=== PATIENT | male | born 1970 | race Caucasian/White ===

== ENCOUNTER 2019-11-02 07:50 | Outpatient (CLI) | payer BC, SELFPAY ==
--- NOTE | ~2019-11-02 | MR_ITS ---
EXAMINATION: MR brain/brain stem wo/w con DATE: 11/02/2019 09:13 INDICATION: Syncope and collapse TECHNIQUE: Magnetic resonance imaging (MRI) of the brain and brainstem was performed without and with 16 mL Multihance intravenous contrast. Sequences included sagittal and axial T1-weighted SE, axial d iffusion-weighted FS SE, axial T2*-weighted GRE, axial T2-weighted FLAIR, and axial T2-weighted FSE. Postcontrast axial and coronal T1-weighted SE was obtained. Apparent diffusion coefficient (ADC) maps were created. COMPARISON: None. FINDINGS: There are no areas of restricted diffusion to suggest acute infarction. No intracranial hemorrhage or abnormal intracranial mass lesion. There are no intraparenchymal signal abnormalities seen on the ot her pulse sequences. The ventricles are symmetric and normal in size. There are no abnormal extra-axi al fluid collections. Flow voids are seen in the cerebral arteries on the T2-weighted sequences consi stent with their expected patency. Mild mucoperiosteal thickening the bilateral ethmoid and maxillary sinuses. Visualized orbits and soft tissues are unremarkable. There are no areas of abnormal enhance ment on the post contrast images. IMPRESSION: 1. Normal brain. Reviewed, dictated and finalized at location A. IMPRESSION: 1. Normal brain.
[2019-11-02 08:51] LABS: Estimated Glomerular Filt Rate > 60
== END 2019-11-02 07:51 | disposition home or self-care (01) ==
PROVIDERS: PCP Physician Assistant; Visit Provider Physician Assistant
DX: R55 Syncope and collapse (principal)
CPT/HCPCS: 36415; 70553; A9577

== ENCOUNTER 2019-11-14 11:30 | Outpatient (CLI) | payer BC, SELFPAY ==
--- NOTE | 2019-11-14 | ECHO_ITS ---
Patient Info Name: Jeet Frazier Age: 49 years : 1970 Gender: Male Ht: 72 in Wt: 180 lbs BSA: 2.04 m2 HR: 78 bpm BP: 136 / 80 mmHg Heart Rhythm: Sinus Rhythm Exam Date: 11/14/2019 12:52 PM Exam Location: [facility] Patient Status: Outpatient Admit Date: 11/14/2019 Staff Ordering Physician: GilaOlga PA-C Warehouse Assembly Worker: Lauren Mancilla RDCS Attending Provider: GilaOlga PA-C Exam Type: CA echo doppler color flow Study Info Indications R55 - Syncope and collapse Complete two-dimensional, color flow and Doppler transthoracic echocardiogram is performed. Summary 1. Left ventricular systolic function is normal, estimated at 55-60%. 2. Left ventricular chamber dimension is normal. 3. 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 4. No valvular abnormalities. Left Ventricle Left ventricular chamber dimension is normal. Left ventricular systolic function is normal, estimated at 55-60%. The left ventricular diastolic function is normal. 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 Right Ventricle Right ventricular chamber dimension is normal. Left Atria Left atrial chamber dimension is normal. Right Atria Right atrial chamber dimension is normal. Aortic Valve The aortic valve is normal. Pulmonic Valve The pulmonic valve is not well visualized. Mitral Valve The mitral valve has normal leaflets. Tricuspid Valve The tricuspid valve leaflets are normal. Pericardium/Pleural The pericardium appears normal. Aorta The aortic root size at the sinus of Valsalva is normal. Left Ventricular Outflow Tract Name Value Normal LVOT 2D LVOT Diameter 2.2 cm LVOT Doppler LVOT Peak Velocity 86 cm/s LVOT Peak Gradient 3 mmHg LVOT Mean Gradient 1 mmHg LVOT VTI 17 cm LVOT VTI/AV VTI Ratio 0.8 LVOT Stroke Volume 66 ml LVOT CO 11.4 l/min LVOT CI 5.6 l/min/m2 Pulmonic Valve Name Value Normal RVOT Doppler RVOT Peak Gradient 1 mmHg PV Doppler PV Peak Velocity 102 cm/s PV Peak Gradient 4 mmHg Mitral Valve Name Value Normal MV Doppler MV Peak Gradient 2 mmHg MV Mean Gradient 1 mmHg
== END 2019-11-14 11:31 | disposition home or self-care (01) ==
LOC: ANHCARD 11:32
PROVIDERS: PCP Physician Assistant; Visit Provider Physician Assistant
DX: R55 Syncope and collapse (principal)
CPT/HCPCS: 93306

== ENCOUNTER 2019-11-18 08:53 | Day surgery (SDC) | payer BC, SELFPAY ==
[2019-11-18] VITALS (15 sets, daily range): BP systolic 117–145; BP diastolic 67–97; PULSE 72–95; RESP 11–22; TEMP 36–37.2; O2SAT 97–99; BMI 24.7
--- NOTE | ~2019-11-18 | XR_ITS ---
XR chest 2V DATE: 11/19/2019 11:49 INDICATION: Post pacemaker placement TECHNIQUE: PA and lateral views COMPARISON: 11/18/2019 portable AP chest FINDINGS: Left-sided dual-lead pacemaker device is again noted with leads overlying right atrium and right ventricle in expected position. Normal heart size. No hilar or mediastinal enlargement. No pulm onary infiltrate or consolidation, pleural effusion or pulmonary vascular congestion or pneumothorax. IMPRESSION: Left-sided dual-lead pacemaker; no active cardiopulmonary disease Reviewed, dictated and finalized at location A.
--- NOTE | ~2019-11-18 | XR_ITS ---
EXAMINATION: XR chest 1V portable INDICATION: Pacemaker insertion TECHNIQUE: Portable AP chest at 1517 hours COMPARISON: None available FINDINGS: A dual lead pacemaker enters present in the left chest wall which ends with its leads in ex pected position. There is no pneumothorax or pleural effusion. The lungs are free of acute opacities. The cardiomediastinal silhouette is normal. IMPRESSION: 1. No acute cardiopulmonary abnormality. Reviewed, dictated and finalized at location A.
--- NOTE | 2019-11-18 11:30 | ECG_ITS ---
Measurements Intervals [place] Rate: 75 P: 38 HI: 148 QRS: 26 QRSD: 86 T: 38 QT: 355 QTc: 398 Interpretive Statements SINUS RHYTHM NORMAL ECG Electronically Signed On 11-18-2019 13:03:51 CDT by Jong Lopez D.O.
--- NOTE | 2019-11-18 11:50 | SUR.PREOP ---
ARRIVES AMBULATORY FROM OP SURGICAL REGISTRATION TO [facility] FOR SCHEDULED PPM INSERTION W/ DR. FRENCH. A&OX4 ON ARRIVAL. DENIES CP OR SOB. ORIENTED TO ROOM , PLAN OF CARE, PROCEDURE. PRE PROCEDURE EKG COMPLETED, IV STARTED, LABS SENT, VS OBTAINED (MONITOR SR 76 AT THIS TIME), CONSENT SIGNED, SKIN PREP COMPLETED. WILL CONTINUE TO MONITOR.
[2019-11-18 12:14] LABS: Basophils Percent Auto 0.4 % (0.2-1.2); Eosinophils Percent Auto 0.3 % (0-4.4); Hematocrit 39.5 % (42.0-52.0); Hemoglobin 13.5 g/dL (14.0-18.0); Immature Granulocyte Absolute 0.02 K/mm3 (0.00-0.031); Immature Granulocyte Percent A 0.3 % (0-0.5); Lymphocytes Absolute Auto 1.15 K/mm3 (0.9-3.2); Lymphocytes Percent Auto 15.7 % (18.3-44.2); Mean Corpuscular HGB Conc 34.2 g/dl (32-36); Mean Corpuscular Hemoglobin 33.8 pg (26-34); Mean Corpuscular Volume 98.8 fl (80-100); Monocytes Absolute Auto 0.4 K/mm3 (0.1-0.6); Monocytes Percent Auto 4.8 % (2.6-8.5); Neutrophils Absolute Auto 5.8 K/mm3 (1.3-6.7); Neutrophils Percent Auto 78.5 % (45.5-73.1); Platelet Count Result 205 k/mm3 (150-375); Red Cell Distribution Width 13.8 % (11.5-14.5); White Blood Count 7.3 K/mm3 (4.5-10.0)
[2019-11-18 12:24] LABS: INR 0.9; Prothrombin Time 11.7 Seconds (11.1-14.7)
[2019-11-18 12:28] LABS: Blood Urea Nitrogen 14 mg/dL (9-20); Calcium 9.5 mg/dL (8.4-10.2); Carbon Dioxide 27 mmol/L (22-30); Chloride 106 mmol/L (98-107); Estimated Glomerular Filt Rate > 60; Glucose 105 mg/dL (75-110); Potassium 3.9 mmol/L (3.4-5.0); Sodium 138 mmol/L (137-145)
--- NOTE | 2019-11-18 12:40 | SUR.PREOP ---
BOTH DR. FRENCH AND ZEENAT FROM BIOTRONIC TO BEDSIDE TO SEE PT.
--- NOTE | 2019-11-18 13:03 | P.SEDATION_ITS ---
Moderate Sedation Note-Pt Data Patient Data Diagnosis: Sick sinus syndrome Present Complaint: Syncope Procedure to be performed/Plan: Pacemaker implantation Allergies Allergy/AdvReac Type Severity Reaction Status Date / Time Penicillins Allergy Severe Anaphylaxis Verified 11/18/19 12:53 Current Medications: Active Medications Vancomycin HCl (Vancomycin 1,000 Mg/D5w 250 Ml) 1,000 mg in 250 mls @ 250 mls/hr IVPB ONCE ONE Stop: 11/18/19 13:59 Sedation/Anesthesia: No previous sedation/anesthesia problems (including family history). [facility] Social History Social History Smoking status: Former smoker Alcohol intake: current Mod Sed Physical Exam Physical Exam Pre Procedural Exam: Normal: Appearance, Neck, Throat, Airway, Lungs, Heart Size, Heart Rate, Heart Rhythm, Neuro Exam and Extremities Hours since solid foods: 14 Hours since liquid intake: 14 Internal Medicine - PN: Obj Da Meds/Results Medications: Active Medications Generic Name Dose Route Start Last Admin Trade Name Freq PRN Reason Stop Dose Admin Vancomycin HCl 1,000 mg in 250 mls @ 250 mls/hr 11/18/19 13:00 Vancomycin 1,000 Mg/D5w 250 Ml IVPB 11/18/19 13:59 ONCE ONE Labs CBC & Chem 7: 11/18/19 12:04 11/18/19 12:04 Labs: Laboratory Results - last 24 hr 11/18/19 11/18/19 11/18/19 12:04 12:04 12:04 WBC 7.3 RBC 4.00 L Hgb 13.5 L Hct 39.5 L MCV 98.8 MCH 33.8 MCHC 34.2 RDW 13.8 Plt Count 205 MPV 10.0 Immature Gran % (Auto) 0.3 Neut % (Auto) 78.5 H Lymph % (Auto) 15.7 L [place] % (Auto) 4.8 Eos % (Auto) 0.3 Baso % (Auto) 0.4 Lymph # (Auto) 1.15 [place] # (Auto) 0.4 Eos # (Auto) 0.0 Baso # (Auto) 0.0 Abs Immat Gran (auto) 0.02 Absolute Neuts (auto) 5.8 Absolute Nucleated RBC 0.0 Nucleated RBC % 0.0 PT 11.7 INR 0.9 Sodium 138 Potassium 3.9 Chloride 106 Carbon Dioxide 27 BUN 14 Creatinine 0.60 L Estim Creat Clear Calc Not Reportable Estimated GFR > 60 Glucose 105 Calcium 9.5 ASA Classification/Sedation ASA Classification/Sedation ASA Class: II Emergent: No Risks: Risks, benefits and alternatives explained and patient/family accepted plan for sedation. Patient re-evaluated immediately prior to sedation.
--- NOTE | 2019-11-18 15:03 | ECG_ITS ---
Measurements Intervals [place] Rate: 76 P: 213 MI: 201 QRS: 63 QRSD: 85 T: 48 QT: 361 QTc: 406 Interpretive Statements ELECTRONIC ATRIAL PACEMAKER ATYPICAL ECG Electronically Signed On 11-18-2019 15:34:18 CDT by Jong Lopez D.O.
--- NOTE | 2019-11-18 15:05 | WPDCARDPROC ---
Cardiac Cath Procedure Note Date of procedure:: 11/18/19 Performing physician:: Prince Hughes MD Indication:: sick sinus syndrome with syncope Brief clinical history:: 49-year-old patient without previous cardiac history who began to experience syncopal episodes recently. An event monitor placed by the PCP demonstrated impressive asystolic pauses of greater than 12 seconds. Echocardiogram has been done as an outpatient and is unremarkable. In this situation a permanent pacemaker implant has been recommended Procedure Procedure performed:: implantation of permanent dual-chamber pacemaker Sedation/Medication given:: fentanyl 50 mg Versed 4 mg Access site:: left subclavian vein Estimated blood loss:: 10 cc Procedure note:: patient was brought to the cardiac catheterization lab in the postabsorptive state the left anterior chest wall was prepped and draped in the usual fashion. Anesthesia was provided inferior to the clavicle with 1% lidocaine infiltrated locally. An incision was then made about 1 in below the clavicle from the midclavicular line to the deltopectoral groove. Sharp and blunt dissection was then used to separate the subcutaneous tissue and electrocautery was used to provide cutaneous hemostasis. Following this blunt dissection was used to create a pacemaker pocket inferior to the incision. This was then packed with antibiotic infused 4 x 4. Following this attention was turned to venous access. Using the supplied puncture needles with the safe sheaths 2 separate punctures were made of the left subclavian vein and guidewires were placed into the venous system under fluoroscopic guidance to the level of the right atrium. Following this the 2 pacemaker safe sheaths provided were used to access the vein and place the pacemaker leads detailed below into the venous circulation down to the level of the right atrium. Attention was then turned to the ventricular lead. The stylet was withdrawn and formed into a J-shaped using a 3 cc syringe. This was used to steer the lead through the right ventricle out to the pulmonary artery position. This was then replaced with a straight stylet the lead was withdrawn and placed into the right ventricular apical position. after confirming good R-waves the fixation screw was deployed and using the analyzer appropriate pacing and sensing was demonstrated and a 10 volt stimulation showed no sign of extracardiac stimulation. Following this attention was turned to the atrial lead. The stylet was removed and replaced with a preformed J stylet which easily place the tip into the right atrial appendage. The fixation screw was deployed upon withdrawal of the stylet the tip was fixed into position. Once again this was tested using the analyzer with good pacing and sensing performance and a 10 volts stimuli as a demonstrated no evidence of extracardiac stimulation. The leads were then sutured to the base of the pocket using 2 0 silk ties. the retained sponge was removed from the pocket and the pocket was irrigated with antibiotic infused saline. Following this the pacemaker generator was connected to the leads using the supplied torque wrench and the entire assembly was placed into the newly created pocket. Pocket was then closed in layers using 3 0 Vicryl in an interrupted fashion for the subcutaneous tissue and then 4 0 Vicryl in a running subcuticular fashion for the skin. The wound was dressed with an Aquacel dressing. Procedure was well tolerated there were no apparent complications he was taken to the holding area where his left arm will be placed in a mobilizer postop antibiotics and analgesics will be ordered postop chest x-ray and ECGs will be ordered. Findings:: The patient received a [employer] dual-chamber pacemaker model Edora DR-T. serial number [id number]. the device is programmed in the DDD, CLS mode. The atrial lead is a [employer] bipolar screw-in lead model Solia S 53 serial number
--- NOTE | 2019-11-18 17:39 | ADMGEN ---
This patient, Jeet Frazier, was admitted to chest pain center/farm laborer for permanent pacemaker placement at 1150. Patient/family oriented to hospital policies and general routines including ID bracelet, bed and alarms, visiting hours, pain management, procedures, bathroom and other care routines, personal items, smoking policy, room service/diet, and visiting hours. Valuables list has been completed. Information on how to activate the Rapid Response Team has been discussed. Patient/Family are encouraged to report perceived risks to care and to ask questions if they do not understand what they are told or what they should do.
--- NOTE | 2019-11-18 17:43 | PC.NURSE ---
11/18/19: 1450: PATIENT RETURNED TO CHEST PAIN CENTER POST PACEMAKER PROCEDURE. PATIENT WAS INSTRUCTED ON POST PACEMAKER PLACEMENT EDUCATION. CALL LIGHT AND BELONGINGS WITHIN REACH.
--- NOTE | 2019-11-18 17:56 | PC.NURSE ---
This patient, Jeet Frazier, was received from [facility] on 11/18/19 at 1756 as extended stay recovery overflow. Patient had pace maker placed. Report received from TY Collins. Patient oriented to unit policies and routines
[2019-11-18] MEDS: SODIUM CHLORIDE 0.9% IV 1,000 ML 50 ML IV CONT (18:22)
[2019-11-19] VITALS (10 sets, daily range): BP systolic 120–130; BP diastolic 70–86; PULSE 69–97; RESP 16–20; TEMP 36–36.4; O2SAT 95–99; BMI 24.6
--- NOTE | 2019-11-19 07:11 | PM.PNCARD ---
Progress Note: A&P Additional Plan 49-year-old gentleman with: Development of sick sinus syndrome with impressive long asystolic pauses status post implantation of dual chamber pacing system yesterday. Patient's bedrest will be till later this morning and then if chest x-ray looks good he can be discharged. Device was checked by the [employer] branch sales and service representative this morning and is functioning normally. Prince Hughes MD [facility] Subjective Date/time seen: Date of service: 11/19/19 07:11 Interval history: Has some soreness at this incisional site of his pacemaker implant from yesterday. Otherwise asymptomatic and in good spirits Exam Const: General: comfortable and no acute distress HENMT: Mouth: Yes moist mucous membranes Eyes: Sclera: sclerae normal Pupils: Equal, round and reactive pupils present Neck: Neck: supple and no JVD Thyroid: thyroid normal Other: Normal carotid upstrokes, no bruits Resp: Effort & Inspection: normal respiratory effort Auscultation: clear to auscultation bilaterally Cardio: Rate: regular rate Rhythm: regular rhythm Other: No murmur no gallop no rub GI: Auscultation: normal bowel sounds Neuro: Cognition (Neuro): normal cognition Extrem: General: normal to inspection Objective Data Vital Signs Vital Signs: Vital Signs - 24 hr 11/18/19 12:05 11/18/19 15:00 11/18/19 15:15 Temperature 37.2 C 36.5 C Pulse Rate 76 75 76 Respiratory Rate 16 11 L 22 H Blood Pressure 130/83 117/81 133/97 H Pulse Oximetry 98 98 98 11/18/19 15:30 11/18/19 15:45 11/18/19 16:15 Temperature Pulse Rate 79 78 74 Respiratory Rate 16 17 18 Blood Pressure 140/87 125/82 132/93 H Pulse Oximetry 97 97 97 11/18/19 16:45 11/18/19 17:46 11/18/19 18:00 Temperature Pulse Rate 83 91 80 Respiratory Rate 16 Blood Pressure 135/92 H 133/79 Pulse Oximetry 97 99 11/18/19 18:45 11/18/19 19:29 11/18/19 19:33 Temperature 36.1 C L 36.4 C L 36.0 C L Pulse Rate 93 95 87 Respiratory Rate 20 20 18 Blood Pressure 140/89 145/67 H 124/79 Pulse Oximetry 98 98 98 11/18/19 20:00 11/18/19 20:45 11/18/19 22:00 Temperature 36.0 C L Pulse Rate 83 93 72 Respiratory Rate 16 Blood Pressure 141/88 H Pulse Oximetry 98 11/19/19 00:00 11/19/19 02:00 11/19/19 03:53 Temperature 36.4 C 36.0 C L Pulse Rate 75 80 85 Respiratory Rate 16 16 Blood Pressure 129/86 120/70 Pulse Oximetry 99 98 11/19/19 04:00 11/19/19 05:52 Temperature Pulse Rate 70 90 Respiratory Rate Blood Pressure Pulse Oximetry Intake/Output Intake/Output: Intake & Output 11/16/19 11/17/19 11/18/19 11/19/19 23:59 23:59 23:59 23:59 Intake Total 1250 Output Total 600 1500 Balance -600 -250 Meds/Results Medications: Active Medications Generic Name Dose Route Start Last Admin Trade Name Freq PRN Reason Stop Dose Admin Hydrocodone Bitart/Acetaminophen 1 tab 11/18/19 15:03 11/19/19 06:36 [place] 5-325 Mg PO 1 tab Q6H PRN Administration Pain Rated 1-3 Folic Acid 1 mg 11/19/19 09:00 Folic Acid PO DAILY [facility] Methotrexate 20 mg 11/23/19 09:00 Methotrexate Tab (*Chemo) PO We@0900 [facility] Multivitamins/Calcium 1 tablet 11/19/19 09:00 Therapeutic Multivitamins/Minerals PO DAILY [facility] Leflunomide 10 Mg 10 mg 11/19/19 09:00 Tablet PO 12/19/19 09:01 DAILY [facility] Non-Formulary Medication 20 mg 11/19/19 09:00 Vilazodone [Viibryd] PO 12/19/19 09:01 DAILY [facility] Prednisone 7.5 mg 11/19/19 08:00 Prednisone PO DAILY@0800 [facility] Vitamin D 1,000 unit 11/19/19 09:00 Vitamin D PO DAILY [facility] Radiology Results: ITS Impressions Chest X-Ray 11/18/19 15:22 IMPRESSION: 1. No acute cardiopulmonary abnormality. Labs Labs: Laboratory Results - last 24 hr 11/18/19 11/18/19 11/18/19 12:04 12:04 12:04 WBC 7.3 RBC 4.00 L Hgb 13.5 L Hct 39.5 L MCV 98.8 MCH 33.8 MCHC 34.2 RDW 13.
--- NOTE | 2019-11-19 07:15 | PM.DS ---
DS: Admitting Diagnosis Admitting Diagnosis Admitting Diagnosis: Sick sinus syndrome with syncope DS: Summary Hospital Course Reason for hospitalization: Implantation of pacemaker Hospital Course: This is a 49-year-old gentleman who was seen in my office yesterday as a new patient because of syncope and evidence of sick sinus syndrome. He previously carries the diagnosis of rheumatoid arthritis. He began to experience syncopal episodes about 1-2 weeks prior to admission. His PCP had him wear a event monitor which demonstrated evidence of relatively long impressive asystolic pauses of greater than 12 seconds explain his symptoms. An echocardiogram was also done earlier in the week which was essentially negative. After the patient was seen in the office pacemaker implantation was recommended. He was admitted on the morning of this hospitalization for that procedure. He underwent unremarkable and uneventful implantation of a [employer] dual-chamber pacemaker system with successful results. Details are in the separately dictated operative note. This morning the device was checked by the [employer] pharmaceutical specialty representative and is functioning normally. He has some incisional soreness but otherwise no complaints. His bedrest will be completed later this morning after that time an x-ray will be done and anticipate discharging him to home. Status at Discharge Functional status at discharge: independent ambulation Overall status at discharge: patient is back to baseline Time Spent with Patient Time attestation: Total time spent providing and/or coordinating discharge services: Time spent: Less than 30 minutes Exam Const: General: no acute distress HENMT: Mouth: Yes moist mucous membranes Eyes: Sclera: sclerae normal Pupils: Equal, round and reactive pupils present Neck: Neck: supple and no JVD Thyroid: thyroid normal Resp: Effort & Inspection: normal respiratory effort Auscultation: clear to auscultation bilaterally Cardio: Rate: regular rate Rhythm: regular rhythm Other: Pacemaker dressing is dry clean intact GI: Auscultation: normal bowel sounds Skin: General skin exam: normal color Extrem: General: normal to inspection DS: Data Data Completed and Pending Labs on day of discharge: Labs from last 24 hours 11/18/19 11/18/19 11/18/19 12:04 12:04 12:04 WBC 7.3 RBC 4.00 L Hgb 13.5 L Hct 39.5 L MCV 98.8 MCH 33.8 MCHC 34.2 RDW 13.8 Plt Count 205 MPV 10.0 Immature Gran % (Auto) 0.3 Neut % (Auto) 78.5 H Lymph % (Auto) 15.7 L [place] % (Auto) 4.8 Eos % (Auto) 0.3 Baso % (Auto) 0.4 Lymph # (Auto) 1.15 [place] # (Auto) 0.4 Eos # (Auto) 0.0 Baso # (Auto) 0.0 Abs Immat Gran (auto) 0.02 Absolute Neuts (auto) 5.8 Absolute Nucleated RBC 0.0 Nucleated RBC % 0.0 PT 11.7 INR 0.9 Sodium 138 Potassium 3.9 Chloride 106 Carbon Dioxide 27 BUN 14 Creatinine 0.60 L Estim Creat Clear Calc Not Reportable Estimated GFR > 60 Glucose 105 Calcium 9.5 Discharge Plan Discharge Patient Disposition: Home, Self-Care Discharge Instructions: ACTIVITY: No driving until you are seen in the office for your incision check. No lifting, pushing or pulling more than 5 pounds with left arm for 1 MONTH No lifting left arm above shoulder height for 1 MONTH Wear immobilizer only if you are unable to remember the above activity restrictions. Recommend that it be worn at night. You may shower AFTER you are seen for incision check on November 24 but no tub baths, swimming pool or hot tub for 1MONTH FOLLOW-UP: Follow up with [facility], [place] office at [facility] [address] to have dressing removed, incision checked and pacemaker checked on November 25, 2019 at 9:45 a.m.. Please arrive by 9:30 a.m. for your appointment. Bring photo ID and insurance card. with Brandi Sexton in the Pacemaker Clinic on December 21, 2019
[2019-11-19] MEDS: Leflunomide 10 MG TABLET 10 EACH PO (09:24)
[2019-11-19] MEDS: CHOLECALCIFEROL 1,000 UNIT TABLET 1000 UNITS PO (09:24)
[2019-11-19] MEDS: THERAPEUTIC MULTIVITAMINS/MINERALS TAB (*BKC) 1 TABLET PO (09:24)
[2019-11-19] MEDS: FOLIC ACID 1 MG TABLET PO (09:24)
[2019-11-19] MEDS: predniSONE 2.5 MG TABLET 7.5 MG PO (09:24)
== END 2019-11-19 14:41 | disposition home or self-care (01) ==
LOC: ANHCATHLAB 11:41 → ANHIMU 16:33
PROVIDERS: PCP Physician Assistant; Visit Provider Specialist
PROC: 0JH606Z Insertion of Pacemaker, Dual Chamber into Chest Subcutaneous Tissue and Fascia, Open Approach (ICD-10-PCS; CPT 33208; principal; 2019-11-18 13:00)
DX: I49.5 Sick sinus syndrome (principal); R55 Syncope and collapse; M06.9 Rheumatoid arthritis, unspecified
CPT/HCPCS: 33208; 36415; 71045; 71046; 80048; 85025; 85610; 93005; A4565; A9270; C1779; C1785; J2250; J3010; J3370; J7030; J7040